=== PATIENT | male | born 1965 | race Two or more races ===

== ENCOUNTER 2024-02-13 15:33 | Emergency (ER) | payer OTHER ==
[~2024-02-13] VITALS: Ht 175.3 cm; Wt 140.6 kg
[2024-02-13] MEDS: HEPARIN/D5W DRIP 500 ML IV ONE (15:45)
[2024-02-13] MEDS ORDERED: HYDROMORPHONE 1 MG/1 ML DISP.SYRIN ONE ×3 (16:08→19:03)
[2024-02-13] MEDS ORDERED: ONDANSETRON 4 MG/2 ML VIAL ONE ×3 (16:08→19:03)
[2024-02-13] MEDS: HYDROMORPHONE 1 MG/1 ML DISP.SYRIN IV ONE ×3 (16:10→19:06)
[2024-02-13] MEDS: ONDANSETRON 4 MG/2 ML VIAL IV ONE ×3 (16:11→19:04)
[2024-02-13 16:14] LABS: BASOPHILS # (AUTO) 0.2 K/UL (0.0-0.2); BASOPHILS % (AUTO) 1.7 % (0.0-2.0); EOSINOPHILS # (AUTO) 0.4 K/uL (0.0-0.7); EOSINOPHILS % (AUTO) 4.8 % (0.0-7.0); HEMATOCRIT 44.6 % (36.7-47.1); HEMOGLOBIN 15.1 g/dL (12.5-16.3); LYMPHOCYTES # (AUTO) 2.8 K/uL (0.8-4.8); LYMPHOCYTES % (AUTO) 29.3 % (20.5-51.5); MEAN CORPUSCULAR HEMOGLOBIN 30.2 uug (23.8-33.4); MEAN CORPUSCULAR HGB CONC 34 g/dL (32.5-36.3); MEAN CORPUSCULAR VOLUME 89.1 fL (73.0-96.2); MONOCYTES # (AUTO) 0.6 K/uL (0.1-1.30); MONOCYTES % (AUTO) 6.8 % (0.0-11.0); NEUTROPHILS # (AUTO) 5.4 K/uL (1.8-8.9); NEUTROPHILS % (AUTO) 57.4 % (38.5-71.5); PLATELET COUNT (AUTO) 264 K/uL (152-348); RED BLOOD CELL COUNT(AUTO) 5.01 MIL/uL (4.06-5.63); RED CELL DISTRIBUTION WIDTH 13.9 % (12.1-16.2); WHITE BLOOD COUNT (AUTO) 9.4 K/uL (3.6-10.2)
[2024-02-13 16:24] LABS: CALCIUM 8.8 mg/dL (8.5-10.1); CARBON DIOXIDE 28 mmol/L (21-32); CHLORIDE 105 mmol/L (98-107); CREATININE 0.9 mg/dL (0.6-1.3); GLUCOSE 129 mg/dL (74-106); POTASSIUM 3.9 mmol/L (3.5-5.1); SODIUM SERUM 143 mmol/L (136-145); UREA NITROGEN, BLOOD 12 mg/dL (7-18)
[2024-02-13 16:38] LABS: ALANINE AMINOTRANSFERASE 30 U/L (16-63); ALBUMIN 3.6 g/dL (3.4-5.0); ALKALINE PHOSPHATASE 93 U/L (50-136); ASPARTATE AMINOTRANSFERASE 14 U/L (15-37); BILIRUBIN,DIRECT 0.1 mg/dL (0.0-0.2); BILIRUBIN,TOTAL 0.5 mg/dL (0.2-1.0); NT-PRO BNP 85 pg/mL (0-125); TOTAL PROTEIN, SERUM 7.3 g/dL (6.4-8.2)
[2024-02-13 16:58] LABS: DIFFERENTIAL COMMENT 1
[2024-02-13] MEDS: HEPARIN SODIUM,PORCINE 5,000 UNITS/ML VIAL IV ONE (17:00)
[2024-02-13] MEDS ORDERED: IV NORMAL SALINE 250 ML IV ONE (17:12)
[2024-02-13] MEDS ORDERED: SWABABLE VALVE TRANSFER SET EA MC ONE (17:12)
[2024-02-13] MEDS ORDERED: IOHEXOL 350 100 ML INFUS..BTL ONE (17:13)
[2024-02-13] MEDS ORDERED: FURO-152 PO (17:48)
[2024-02-13] MEDS ORDERED: SEMA7TAB IJ (17:48)
[2024-02-13] MEDS ORDERED: [UNRECOGNIZED DRUG - CODE] SQ (17:48)
[2024-02-13] MEDS ORDERED: TIOT4MIS3 IH (17:48)
[2024-02-13] MEDS ORDERED: LOSA50TA3 PO (17:48)
[2024-02-13] MEDS ORDERED: ATOR40TA PO (17:48)
[2024-02-13] MEDS ORDERED: CARV25TA PO (17:48)
[2024-02-13] MEDS ORDERED: METF-442 PO (17:48)
[2024-02-13] MEDS ORDERED: Mounjaro IJ (17:48)
[2024-02-13 19:14] VITALS: BP 142/78; TEMP 98.2; O2SAT 98
== END 2024-02-13 19:16 | disposition home or self-care (01) ==
LOC: ER 15:34
DX: R07.89 Other chest pain (principal); E11.9 Type 2 diabetes mellitus without complications; Z79.899 Other long term (current) drug therapy
CPT/HCPCS: 99285; 96374; 71275; 71045; 96375; 80076; 80048; 83880; 85025; 85379; 85730; 84484; 36415; 93005; 96376; J2405 ×3; Q9967; J1170 ×3; J7040; A4606; A4663